=== PATIENT | male | born 2000 | race Caucasian/White ===

== ENCOUNTER → 2020-01-08 07:48 | Outpatient (CLI) | payer OTHER | END | disposition home or self-care (01) | LOC: D.US 07:48 → D.NM 08:30 | PROVIDERS: ATTEND Internal Medicine Gastroenterology | DX: R11.2 Nausea with vomiting, unspecified (principal); R10.84 Generalized abdominal pain ==

== ENCOUNTER → 2020-01-20 07:48 | Outpatient (CLI) | payer OTHER | END | disposition home or self-care (01) | LOC: D.NM 07:48 | PROVIDERS: ATTEND Internal Medicine Gastroenterology | DX: R10.13 Epigastric pain (principal); R11.0 Nausea ==